=== PATIENT | female | born 1955 | race Caucasian/White ===

== ENCOUNTER 2019-06-06 08:50 | Emergency (ER) | payer MEDICARE, OTHER, SELFPAY ==
--- NOTE | 2019-06-06 08:53 | ED.GENADULT ---
HPI - General Adult General Chief complaint: Extremity Injury, Lower Stated complaint: left knee issue Time Seen by Provider: 06/06/19 08:51 Source: patient Mode of arrival: ambulatory Limitations: no limitations History of Present Illness HPI narrative: 63-year-old female here for evaluation of left knee injury. Patient states that last evening she was helping a disabled relative take a shower when she hurt her left knee. She is unsure exactly what happened however she knows that she did not fall on her knee. She has noticed some swelling since then. Has generalized knee pain with some radiation down to her foot. No prior injuries to her pain. Has been taking Aleve. Has been able to ambulate but has some difficulty with doing so. Related Data Allergies Allergy/AdvReac Type Severity Reaction Status Date / Time No Known Drug Allergies Allergy Verified 06/06/19 08:54 Review of Systems Constitutional Constitutional: Denies fever(s) Cardiovascular Cardiovascular: Denies chest pain and Denies dyspnea Respiratory Respiratory: Denies dyspnea Gastrointestinal Gastrointestinal: Denies abdominal pain Musculoskeletal Musculoskeletal: Reports tingling Comments: Left knee pain Integumentary/Breasts Skin/Breast: Denies lesions and Denies rash Neurologic Neurologic: Reports tingling PFSH Surgical History No pertinent past surgical history (Acute) Social History Smoking Status: Never smoker Social History Smoking Status: Never smoker Exam Initial Vital Signs Initial Vital Signs: Vital Signs Temperature 97.8 F 06/06/19 08:54 Pulse Rate 90 06/06/19 08:54 Respiratory Rate 16 06/06/19 08:54 Blood Pressure 127/80 06/06/19 08:54 Pulse Oximetry 94 06/06/19 08:54 Const General: cooperative and comfortable Resp Effort & Inspection: normal respiratory effort Cardio Rate: regular rate Pulses: dorsalis pedis present on the left Skin Lesions: no lesions Rashes: no rashes Neuro Gait: normal gait Sensory Exam: no sensory deficits noted Extrem Other: Left ankle left hip unremarkable. Left knee with a small effusion. Has tenderness to palpation on the medial hamstring. Also tenderness to palpation along the medial lateral joint lines. ACL MCL PCL and LCL are all intact with functional testing. Patient able to do a straight leg raise. Procedures Orthopedic Splinting/Casting Injury #1: Side: left Lower Extremity Injury Location: knee Lower Extremity Immobilizer: Misael wrap Post splinting neuro exam: intact Post splinting vascular exam: intact Placed by: Nursing Course Vital Signs Vital signs: Vital Signs - 8 hr 06/06/19 08:54 Temperature 97.8 F Pulse Rate 90 Respiratory Rate 16 Blood Pressure 127/80 Pulse Oximetry 94 Medical Decision Making MDM Narrative Medical decision making narrative: Have low suspicion for fracture. Will hold on x-rays for now. Does have a moderate effusion. I do suspect a degree of hamstring injury and also highly suspect a meniscus injury. Patient is neurovascularly intact. We did discuss the use of crutches and ice and Misael bandage/knee brace. Patient declined the offer for crutches. She is currently on anti-inflammatories and she will continue this. She declined the offer for Ultram. We discussed return precautions and follow-up instructions. She expressed understanding and agreement plan. Discharge Plan Departure Patient Disposition: Home Clinical Impression: Injury of knee, left Qualifiers: Encounter type: initial encounter Qualified Code(s): S89.92XA - Unspecified injury of left lower leg, initial encounter Instructions: How to Use an Elastic Bandage-Knee Sprain, DI for Knee Sprain Activity Restrictions/Additional Instructions: I recommend that use the walker at home that you have as needed. You could also use the Misael bandage as directed. Keep your knee iced. You can walk on your knee. Contact her primary provider to discuss the indications for further evaluation and treatment to include physical therapy. Return to the emergency department for any new symptoms.
[2019-06-06 08:54] VITALS: BP 127/80; PULSE 90; RESP 16; TEMP 36.6; O2SAT 94; BMI 30.4
== END 2019-06-06 09:28 | disposition home or self-care (01) ==
LOC: ED 09:28
PROVIDERS: Emergency Provider Emergency Medicine
DX: S89.92XA Unspecified injury of left lower leg, initial encounter (principal)
CPT/HCPCS: 99282

== ENCOUNTER → 2021-11-10 09:26 | Outpatient (CLI) | payer MEDICARE, OTHER, SELFPAY ==
[2021-11-10 11:25] LABS: COVID19 -Nasal RAPID POSITIVE (Negative)
== END ==
PROVIDERS: Visit Provider Family Medicine Sleep Medicine
DX: U07.1 COVID-19 (principal); Z20.822 Contact with and (suspected) exposure to COVID-19
CPT/HCPCS: 87635; C9803

== ENCOUNTER → 2022-01-02 14:16 | Outpatient (CLI) | payer MEDICARE, OTHER, SELFPAY ==
[2022-01-02 15:09] LABS: COVID19 -Nasal RAPID Negative (Negative)
== END ==
PROVIDERS: Visit Provider Family Medicine Sleep Medicine
DX: Z20.822 Contact with and (suspected) exposure to COVID-19 (principal)
CPT/HCPCS: 87635; C9803

== ENCOUNTER 2022-01-05 06:46 | Day surgery (SDC) | payer MEDICARE, OTHER, SELFPAY ==
[2022-01-05 07:20] VITALS: BP 135/85; PULSE 86; RESP 16; TEMP 36.3; O2SAT 95
[2022-01-05 07:25] VITALS: BMI 30.4
[2022-01-05] MEDS: SODIUM CHLORIDE 0.9% 1,000 ML 84 ML IV (07:41)
--- NOTE | 2022-01-05 07:57 | PM.HP.1 ---
History of Present Illness History of Present Illness Date Patient Seen: 01/05/22 Time Patient Seen: 07:57 Chief complaint: SDC Narrative: Personal history of colon polyps. I reviewed my note from October 06, 2021. No significant changes from a gastrointestinal perspective. Patient History Medical History COPD (chronic obstructive pulmonary disease) ROSI on CPAP Family & Social History Social History: household members spouse Tobacco & Substance use: Smoking Status Former smoker alcohol intake frequency a few times a week Substance Use Type marijuana Meds Home Medications and Allergies Home Medications Medication Instructions Recorded Confirmed Type atorvastatin 40 mg tablet 40 mg PO DAILY 11/28/21 01/05/22 History metoprolol succinate 50 mg 50 mg PO DAILY 11/28/21 01/05/22 History tablet,extended release 24 hr umeclidinium 62.5 mcg/actuation INHALATION 11/28/21 History blister powder for inhalation (Incruse Ellipta) Allergies Allergy/AdvReac Type Severity Reaction Status Date / Time No Known Drug Allergies Allergy Verified 01/05/22 07:27 Review of Systems Review of Systems ROS: Yes All systems reviewed with the patient and are negative except as otherwise documented Exam Vital Signs (past 8 hours): - 01/05/22 07:20 Temperature 97.3 F L Pulse Rate 86 Respiratory Rate 16 Blood Pressure 135/85 Pulse Oximetry 95 Oxygen Delivery Method Room Air Const General: cooperative and comfortable Orientation: alert HENMT Head: normocephalic Ears: external ears normal Nose: external nose normal Face and sinus: normal facial exam Mouth: oral mucosae normal Eyes General: appearance normal, both eyes and all related structures Neck Neck: normal visual inspection Chest Chest: normal inspection of the chest Resp Effort & Inspection: normal respiratory effort Cardio Rate: regular rate GI Inspection: normal to inspection Skin General: no rashes or lesions noted and No jaundice Neuro General: patient alert and moves all extremities Cognition: normal cognition Speech: speech normal Extrem General: no pedal edema Psych Appearance: grossly normal Assessment & Plan Assessment & Plan narrative: Personal history of colon polyps. Colonoscopy is pursued today. Time Spent With Patient Critical Care time: I spent a total of [] minutes of critical care time on this patient's care today; this time is exclusive of procedural time.
--- NOTE | 2022-01-05 07:58 | PM.PREOP ---
Pre-operative Note COVID-19 COVID-19 status: Negative Result date/Date tested (Pos, Neg/Pending): 01/02/22 Criteria for continued procedure: Possibility delay results in more complex future surgery or treatment Interval Note History & Physical reviewed/Exam performed by Physician: Yes Changes to H&P: No ASA Class (for procedural sedation): II
--- NOTE | 2022-01-05 08:37 | SUR.OPER ---
PEDIATRIC SCOPE USED
--- NOTE | 2022-01-05 08:50 | P.OP.COLON_ITS ---
Operative Date/Time/Diagnoses Date of procedure: 01/05/22 Time of procedure: 08:50 Pre-op diagnosis: Personal history of colon polyps Post-op diagnosis: same Procedure & Clinicians Study performed: Colonoscopy Same procedure as scheduled: Yes Indications: Personal history of colon polyps Surgeon: Aravind Wetzel Procedure Notes SCOAP/Timeout: Done Procedure in detail: After the risks and benefits were explained, written and verbal informed consent was obtained. The patient was brought into the procedure room and placed into the left lateral decubitus position. Please see nurse temple meat cutter notes for sedation details. Digital rectal examination was accomplished. The scope was introduced into the patient and advanced under direct visualization to the cecum as identified by the appendiceal orifice and ileocecal valve. The scope was slowly withdrawn to carefully examine the mucosa for any defects or lesions. Comprehensive imaging was accomplished throughout the rectum including the dentate line. The colon was decompressed, the scope was then removed from the patient who tolerated the procedure well. Pediatric colonoscope Bowel prep adequate Scope withdrawal time: 6 minutes Sedation minutes: 14 Specimen(s): none sent Complications: none Impression: No significant polyps mass lesions or inflammatory features identified throughout. Endoscopic diagnosis Visually normal colonoscopy Grade 1 hemorrhoids Post-procedure Recommendations: Colonoscopy in 5 years Plan for aftercare: Considering prior history of adenomatous colon polyps, repeat colonoscopy is friedman ggested for 5 years time. Disposition: PACU
[2022-01-05 08:52] VITALS: BP 128/64; PULSE 80; RESP 14; TEMP 35.9; O2SAT 97
[2022-01-05 08:57] VITALS: BP 120/65; PULSE 80; RESP 14; O2SAT 97
[2022-01-05 09:02] VITALS: BP 128/68; PULSE 79; RESP 17; O2SAT 97
== END 2022-01-05 09:18 | disposition home or self-care (01) ==
PROVIDERS: Referring Provider Internal Medicine Gastroenterology; Visit Provider Internal Medicine Gastroenterology
PROC: 0DJD8ZZ Inspection of Lower Intestinal Tract, Via Natural or Artificial Opening Endoscopic (ICD-10-PCS; CPT 45378; principal; 2022-01-05 08:30)
DX: Z12.11 Encounter for screening for malignant neoplasm of colon (principal); Z86.010 Personal history of colon polyps; K64.0 First degree hemorrhoids
CPT/HCPCS: G0105